=== PATIENT | female | born 1980 | race Caucasian/White ===

== ENCOUNTER 2017-10-15 10:29 | Emergency (ER) | payer OTHER ==
[~2017-10-15] VITALS: Ht 175.3 cm; Wt 72.7 kg
[2017-10-15] MEDS ORDERED: DOXY-278 PO (10:50)
[2017-10-15] MEDS ORDERED: IBUP-1114 PO (10:50)
[2017-10-15] MEDS ORDERED: OXYC1TAB23 PO (10:50)
[2017-10-15] MEDS ORDERED: CLINDAMYCIN 900 MG in APPROPRIATE DILUENT 1 EA IV ONE (11:45)
[2017-10-15] MEDS ORDERED: ISOVUE-370 76% 100ML VIAL (Q9967) As Ordered ONE (11:49)
[2017-10-15 12:21] LABS: BASO % 0.1 % (0.0-1.0); EOS # 0.1 10^3/uL (0.0-0.50); EOS % 0.7 % (0.0-3.0); IMMATURE GRANULOCYTE % 0.2 % (0-0); LYMPH # 1.8 10^3/uL (1.5-4.5); LYMPH % 20.7 % (24.0-44.0); MEAN CORPUSCULAR HEMOGLOBIN 32.3 pg (27.0-33.0); MEAN CORPUSCULAR HGB CONC 34.1 g/dl (32.0-36.5); MEAN CORPUSCULAR VOLUME 94.8 fl (80.0-96.0); MONO # 0.8 10^3/uL (0.0-0.8); MONO % 9.3 % (0.0-5.0); NEUTROPHILS # 6.1 10^3/uL (1.8-7.7); PLATELET COUNT, AUTOMATED 206 10^3/uL (150-450); RED CELL DISTRIBUTION WIDTH 11.9 % (11.5-14.5); WHITE BLOOD COUNT 8.9 10^3/uL (4.0-10.0)
[2017-10-15 12:45] LABS: ALBUMIN 3.8 GM/DL (3.2-5.2); ALKALINE PHOSPHATASE 100 U/L (45-117); ALT/SGPT 30 U/L (12-78); ANION GAP 6 MEQ/L (8-16); AST/SGOT 18 U/L (7-37); BILIRUBIN,TOTAL 0.6 MG/DL (0.2-1.0); BLOOD UREA NITROGEN 10 MG/DL (7-18); CALCIUM LEVEL 9.1 MG/DL (8.5-10.1); CARBON DIOXIDE LEVEL 31 MEQ/L (21-32); CHLORIDE LEVEL 101 MEQ/L (98-107); CREATININE FOR GFR 0.64 MG/DL (0.55-1.02); GLOMERULAR FILTRATION RATE > 60.0 (>60); GLUCOSE, FASTING 83 MG/DL (70-105); POTASSIUM SERUM 3.9 MEQ/L (3.5-5.1); SODIUM LEVEL 138 MEQ/L (136-145); TOTAL PROTEIN 7.6 GM/DL (6.4-8.2)
[2017-10-15] MEDS ORDERED: ONDANSETRON 4MG/2ML VIAL (J2405) IV ONE (13:00)
[2017-10-15] MEDS ORDERED: diphenhydrAMINE INJ 50MG/ML VIAL (J1200) IV ONE (13:00)
[2017-10-15] MEDS ORDERED: MORPHINE 4 MG/ML 1ML SYRINGE IV ONE (13:00)
--- NOTE | 2017-10-15 14:27 | REP ---
MAXILLOFACIAL CT WITHOUT CONTRAST: HISTORY: Facial swelling. CONTRAST: Isovue 370, 75 mL. Mucosal thickening is present in the maxillary sinuses. Retention cysts or polyps are present in the maxillary sinuses. The remaining sinuses are clear. Mucosal thickening involves the left osteomeatal unit. The right osteomeatal unit is patent. The middle and inferior nasal turbinates are partially paradoxical. There is autumn bullosa of the middle nasal turbinates. The nasal septum is midline. A spur is present arising from the right side of the nasal septum. The cribriform plate, medial dutton of orbits, and optic canals are intact. The carotid canals form a segment of the posterolateral dutton of the sphenoid sinuses. The left sphenoid sinus septum inserts into the left internal carotid canal wall. There is soft tissue thickening along the buccal surface of the left maxilla. A 7 mm hypodensity is present consistent with a small abscess. There is superior extension of the soft tissue thickening anterior to the left maxillary sinus and left orbit. There is thickening of the left platysma muscle. Stranding is present in the overlying subcutaneous tissue. These findings are consistent with edema. There is periapical lucency involving the second premolar tooth of the left maxilla. This represents periodontal disease. IMPRESSION: 1. Sinus mucosal thickening as described above. 2. There is soft tissue thickening containing a 7 mm hypodensity consistent with an abscess and associated phlegmon along the buccal surface of the left maxilla. Signed by Cricket Porter MD 10/15/2017 02:34 P
[2017-10-15 14:45] VITALS: BP 112/74
[2017-10-15] MEDS ORDERED: CLEO300C2 PO (14:46)
[2017-10-15] MEDS ORDERED: PERC5TAB12 PO (14:46)
[2017-10-15] MEDS ORDERED: IBUP-1022 PO (14:46)
== END 2017-10-15 15:08 | disposition home or self-care (01) ==
LOC: M ED 10:29
DX: K04.7 Periapical abscess without sinus (principal)
CPT/HCPCS: 70487; 80053; 81025; 85025; 87040; 96365; 96375; 99284; J1200; J2405; Q9967

== ENCOUNTER → 2018-10-17 | Outpatient (CLI) | payer OTHER | LOC: M LRY 11:27 | DX: M79.89 Other specified soft tissue disorders (principal); S69.92XA Unspecified injury of left wrist, hand and finger(s), initial encounter; Y93.69 Activity, other involving other sports and athletics played as a team or group; Y92.9 Unspecified place or not applicable; W21.01XA Struck by football, initial encounter | CPT/HCPCS: G0463 ==